=== PATIENT | female | born 2000 | race Caucasian/White ===

== ENCOUNTER 2021-03-13 10:42 | Emergency (ER) | payer MEDICAID ==
[~2021-03-13] VITALS: Ht 154.9 cm; Wt 65.8 kg
[2021-03-13 10:42] VITALS: BP_SYST 101
[2021-03-13 11:42] VITALS: BP_SYST 101
== END 2021-03-13 11:44 | disposition home or self-care (01) ==
LOC: SED 10:42
DX: R55 Syncope and collapse (principal)
CPT/HCPCS: 81025; 93005; 99283